=== PATIENT | female | born 1945 | race Caucasian/White ===

== ENCOUNTER 2018-04-10 19:37 | Outpatient (REF) | payer MEDICARE, SELFPAY ==
[2018-04-10 20:53] LABS: HCT 40.9 % (36.0-46.0); HGB 13.2 g/dL (12.0-15.5); Mean Corp. HGB Concentration 32.3 g/dL (32.0-36.0); Mean Corpuscular Hemoglobin 30.8 pg (27.0-33.0); Mean Corpuscular Volume 95.6 fL (80-95); Mean Platelet Volume 11.7 fL (8.0-11.0); Platelet Count 228 x1000/uL (130-400); RBC 4.28 m/cumm (4.00-5.20); RBC Distribution Width 13.9 % (11.7-14.6); White Blood Cell Count 9.79 k/cumm (4.4-10.8)
[2018-04-10 20:55] LABS: ALT 21 U/L (12-78); AST 23 U/L (15-37); Alkaline Phosphatase 75 U/L (46-116); BUN 32 mg/dL (7-18); Bilirubin, Total 0.4 mg/dL (0.2-1.0); CREATININE 1.22 mg/dL (0.55-1.02); Calcium 8.8 mg/dL (8.5-10.1); Chloride 106 mmol/L (98-107); Estimated GFR 43.33 (mL/min/1.73m2); Glucose 82 mg/dL (70-100); Potassium 5.3 mmol/L (3.5-5.1); Sodium 138 mmol/L (136-145); Total Protein 7.2 g/dL (6.4-8.2)
== END 2018-04-10 19:57 ==
LOC: NCHCN 19:37
PROVIDERS: PCP Internal Medicine; Visit Provider Internal Medicine
DX: R73.09 Other abnormal glucose (principal); I48.0 Paroxysmal atrial fibrillation; E66.9 Obesity, unspecified
CPT/HCPCS: 80053; 85027

== ENCOUNTER 2019-04-08 12:13 | Outpatient (REF) | payer MEDICARE, SELFPAY ==
[2019-04-08 18:44] LABS: HGB 13.3 g/dL (12.0-15.5); Mean Corp. HGB Concentration 32.4 g/dL (32.0-36.0); Mean Corpuscular Hemoglobin 29.6 pg (27.0-33.0); Mean Corpuscular Volume 91.1 fL (80-95); Platelet Count 278 x1000/uL (130-400); RBC Distribution Width 14.2 % (11.7-14.6); White Blood Cell Count 7.63 k/cumm (4.4-10.8)
[2019-04-08 18:54] LABS: Anion Gap 7.2 mmol/L (3-11); BUN 22 mg/dL (7-18); CO2 26.8 mmol/L (21.0-32.0); CREATININE 1.04 mg/dL (0.55-1.02); Calcium 9.4 mg/dL (8.5-10.1); Chloride 108 mmol/L (98-107); Estimated GFR 51.94 (mL/min/1.73m2); Glucose 99 mg/dL (70-100); Potassium 4.5 mmol/L (3.5-5.1); Sodium 142 mmol/L (136-145); TSH 1.86 uIU/mL (0.36-3.74)
[2019-04-08 19:31] LABS: Hemoglobin A1C 5.4 % (4.5-6.2)
== END 2019-04-08 12:33 ==
LOC: NCHCN 12:13
PROVIDERS: PCP Internal Medicine; Visit Provider Internal Medicine
DX: R73.09 Other abnormal glucose (principal); M25.511 Pain in right shoulder; E66.9 Obesity, unspecified; R29.6 Repeated falls; I10 Essential (primary) hypertension
CPT/HCPCS: 80048; 85027; 83036; 84443

== ENCOUNTER 2020-04-26 15:14 | Outpatient (REF) | payer MEDICARE, SELFPAY ==
[2020-04-26 22:40] LABS: Albumin 3.6 g/dL (3.4-5.0); Anion Gap 8.2 mmol/L (3-11); BUN 21 mg/dL (7-18); C-Reactive Protein 0.27 mg/dL (0.0-0.3); CO2 26.8 mmol/L (21.0-32.0); Calcium 9.3 mg/dL (8.5-10.1); Chloride 106 mmol/L (98-107); Glucose 89 mg/dL (74-106); Magnesium 2.1 mg/dL (1.8-2.4); PHOSPHORUS 3.9 mg/dL (2.6-4.7); Potassium 4.6 mmol/L (3.5-5.1); Sodium 141 mmol/L (136-145)
[2020-04-26 23:04] LABS: ESR 12 mm/hr (0-30)
[2020-04-27 16:33] LABS: Rheumatoid Factor <8.6 IU/mL (<12.0)
[2020-04-28 10:01] LABS: Cyclic Citrullinated Peptide <2.5 U/mL (<5.0)
== END 2020-04-26 15:34 ==
LOC: NCHCN 15:14
PROVIDERS: PCP Internal Medicine; Visit Provider Internal Medicine
DX: M06.9 Rheumatoid arthritis, unspecified (principal); R73.09 Other abnormal glucose; I10 Essential (primary) hypertension; E66.9 Obesity, unspecified
CPT/HCPCS: 80069; 85652; 86200; 83735; 86140; 86431

== ENCOUNTER 2021-04-27 16:47 | Outpatient (REF) | payer MEDICARE, SELFPAY ==
[2021-04-27 19:41] LABS: HCT 44.6 % (36.0-46.0); HGB 14.1 g/dL (11.2-15.7); MCH 30.1 pg (27.0-33.0); MCHC 31.6 % (32.0-36.0); MCV 95.1 fL (80-95); MPV 11.1 fL (8.0-11.0); Platelet Count 259 10^3/uL (130-400); RBC 4.69 10^6/uL (3.93-5.22); RDW 13.8 % (11.7-14.6); RDW-SD 48.5 fL; WBC 8.56 10^3/uL (4.4-10.8)
[2021-04-27 20:29] LABS: Anion Gap 6.4 mmol/L (3-11); BUN 26 mg/dL (7-18); CO2 30.6 mmol/L (21.0-32.0); CREATININE 1.1 mg/dL (0.55-1.02); Calcium 9.4 mg/dL (8.5-10.1); Chloride 107 mmol/L (98-107); Estimated GFR 48.42 (mL/min/1.73m2); Glucose 90 mg/dL (74-106); Potassium 4.7 mmol/L (3.5-5.1); Sodium 144 mmol/L (136-145); TSH 2.55 uIU/mL (0.36-3.74); Vitamin B12 358 pg/mL (193-986)
[2021-04-30 13:46] LABS: Total Protein 7.1 g/dL (6.3-8.2)
== END 2021-04-27 16:48 | disposition home or self-care (01) ==
LOC: NCHCN 16:47
PROVIDERS: PCP Internal Medicine; Visit Provider Internal Medicine
DX: I10 Essential (primary) hypertension (principal); M81.0 Age-related osteoporosis without current pathological fracture; G40.209 Localization-related (focal) (partial) symptomatic epilepsy and epileptic syndromes with complex partial seizures, not intractable, without status epilepticus; M25.511 Pain in right shoulder
CPT/HCPCS: 80048; 85027; 82607; 84165; 84443

== ENCOUNTER → 2021-10-10 13:28 | Outpatient (BNVA) | payer MEDICARE, MEDICAID, SELFPAY | PROVIDERS: PCP Internal Medicine; Referring Provider Internal Medicine; Visit Provider Psychiatry & Neurology Neurology | DX: I69.120 Aphasia following nontraumatic intracerebral hemorrhage (principal); I69.151 Hemiplegia and hemiparesis following nontraumatic intracerebral hemorrhage affecting right dominant side; I69.198 Other sequelae of nontraumatic intracerebral hemorrhage; G40.209 Localization-related (focal) (partial) symptomatic epilepsy and epileptic syndromes with complex partial seizures, not intractable, without status epilepticus; R26.89 Other abnormalities of gait and mobility | CPT/HCPCS: 99204 ==

== ENCOUNTER 2021-12-31 14:58 | Outpatient (REF) | payer MEDICARE, MEDICAID, SELFPAY ==
[2022-01-02 12:53] LABS: Albumin 58.5 % (55.8-66.1); Albumin g/dL 3.9 g/dL (3.6-5.2); Immunotyping, Serum (See Note); Total Protein 6.7 g/dL (6.3-8.2)
== END 2021-12-31 14:59 | disposition home or self-care (01) ==
LOC: NCHCN 14:58
PROVIDERS: PCP Internal Medicine; Visit Provider Internal Medicine
DX: E85.89 Other amyloidosis (principal); I43 Cardiomyopathy in diseases classified elsewhere
CPT/HCPCS: 84155; 84165; 86320

== ENCOUNTER 2022-01-07 19:10 | Outpatient (REF) | payer MEDICARE, MEDICAID, SELFPAY ==
[2022-01-09 14:45] LABS: Albumin, Urine % 19.5 %; Albumin, Urine mg/dL 2 mg/dL; Globulins, Urine % 80.5 %; Globulins, Urine mg/dL 7 mg/dL; Immunotyping, Urine (See Note); Total Protein Urine 9 mg/dL (See Note)
== END 2022-01-07 19:11 | disposition home or self-care (01) ==
LOC: NCHCN 19:10
PROVIDERS: PCP Internal Medicine; Visit Provider Internal Medicine
DX: E85.9 Amyloidosis, unspecified (principal)
CPT/HCPCS: 84156; 84166; 86335

== ENCOUNTER 2022-05-02 15:00 | Outpatient (REF) | payer MEDICARE, MEDICAID, SELFPAY ==
[2022-05-02 19:06] LABS: Abs Immature Grans 0.02 10^3/uL (0.0-0.06); Absolute Basophil Count 0.05 10^3/uL (0.0-0.2); Absolute Eosinophil Count 0.45 10^3/uL (0.0-0.7); Absolute Lymphocyte Count 2.06 10^3/uL (1.2-3.4); Absolute Monocyte Count 0.87 10^3/uL (0.1-0.8); Absolute Neutrophil Count 5.42 10^3/uL (1.2-6.7); Basophils % 0.6; Eosinophils % 5.1; HCT 40.7 % (36.0-46.0); Immature Grans % 0.2; Lymphocytes % 23.2; MCH 30.6 pg (27.0-33.0); MCHC 31.9 % (32.0-36.0); MCV 96 fL (80-95); MPV 10.7 fL (8.0-11.0); Monocytes % 9.8; Neutrophils % 61.1; Platelet Count 251 10^3/uL (130-400); RBC 4.25 10^6/uL (3.93-5.22); RDW 14.1 % (11.7-14.6); RDW-SD 49.4 fL; WBC 8.87 10^3/uL (4.4-10.8)
[2022-05-02 19:17] LABS: Anion Gap 7.6 mmol/L (3-11); BUN 24 mg/dL (7-18); CO2 27.4 mmol/L (21.0-32.0); CREATININE 1.1 mg/dL (0.55-1.02); Calcium 9.1 mg/dL (8.5-10.1); Calculated LDL 119 mg/dL (<100); Chloride 109 mmol/L (98-107); Cholesterol 203 mg/dL (<200); Estimated GFR 52.08 (mL/min/1.73m2); Glucose 85 mg/dL (74-106); HDL Cholesterol 49 mg/dL (40-60); Potassium 4.4 mmol/L (3.5-5.1); Sodium 144 mmol/L (136-145); Triglyceride 175 mg/dL (<150)
== END 2022-05-02 15:01 | disposition home or self-care (01) ==
LOC: NCHCN 15:00
PROVIDERS: PCP Internal Medicine; Visit Provider Internal Medicine
DX: I61.2 Nontraumatic intracerebral hemorrhage in hemisphere, unspecified (principal); I48.91 Unspecified atrial fibrillation
CPT/HCPCS: 80048; 80061; 85025

== ENCOUNTER 2022-10-11 18:48 | Outpatient (REF) | payer MEDICARE, MEDICAID, SELFPAY ==
[2022-10-11 19:07] LABS: Bilirubin Negative (Negative); Blood Negative (Negative); Clarity Clear (Clear); Glucose Negative (Negative); Ketones Negative (Negative); Leukocyte Esterase Negative (Negative); Nitrite Negative (Negative); Specific Gravity >= 1.030 (1.005-1.025); Urobilinogen 0.2 mg/dL (Up to 0.2); pH 5.5 (5-8)
== END 2022-10-11 18:49 | disposition home or self-care (01) ==
LOC: NCHCN 18:48
PROVIDERS: PCP Internal Medicine; Visit Provider Internal Medicine
DX: R10.30 Lower abdominal pain, unspecified (principal); R82.998 Other abnormal findings in urine
CPT/HCPCS: 81003

== ENCOUNTER 2024-01-07 14:22 | Outpatient (REF) | payer MEDICARE, SELFPAY ==
[2024-01-07 20:25] LABS: HCT 41.7 % (36.0-46.0); HGB 13.2 g/dL (11.2-15.7); MCH 29.6 pg (27.0-33.0); MCHC 31.7 % (32.0-36.0); MCV 94 fL (80-95); MPV 10.7 fL (8.0-11.0); Platelet Count 286 10^3/uL (130-400); RBC 4.46 10^6/uL (3.93-5.22); RDW 14.6 % (11.7-14.6); RDW-SD 50.2 fL; WBC 8.45 10^3/uL (4.4-10.8)
[2024-01-07 21:01] LABS: Anion Gap 6.6 mmol/L (3-11); BUN 19 mg/dL (7-18); CO2 30.4 mmol/L (21.0-32.0); Calcium 9.7 mg/dL (8.5-10.1); Calculated LDL 118 mg/dL (<100); Chloride 106 mmol/L (98-107); Cholesterol 197 mg/dL (<200); Estimated GFR 57.66 (mL/min/1.73m2); Glucose 94 mg/dL (74-106); HDL Cholesterol 56 mg/dL (40-60); Potassium 4.8 mmol/L (3.5-5.1); Sodium 143 mmol/L (136-145); Triglyceride 119 mg/dL (<150)
== END 2024-01-07 14:23 | disposition home or self-care (01) ==
LOC: NCHCN 14:22
PROVIDERS: PCP Internal Medicine; Visit Provider Internal Medicine
DX: I10 Essential (primary) hypertension (principal); E78.5 Hyperlipidemia, unspecified; Z79.82 Long term (current) use of aspirin
CPT/HCPCS: 80048; 80061; 85027

== ENCOUNTER 2024-03-30 22:03 | Outpatient (REF) | payer MEDICARE, SELFPAY ==
[2024-03-30 20:31] LABS: ALT 23 U/L (14-59); AST 23 U/L (15-37); Albumin 3.3 g/dL (3.4-5.0); Alkaline Phosphatase 107 U/L (46-116); Bilirubin, Direct 0.1 mg/dL (0.0-0.2); Bilirubin, Total 0.37 mg/dL (0.2-1.0); Ferritin 116 ng/mL (8-252); Total Protein 7.1 g/dL (6.4-8.2)
[2024-03-31 18:09] LABS: HBs Antibody, Quant 28.5 mIU/mL (See Note); Hepatitis B Surface Ab Positive (See Note)
[2024-03-31 18:48] LABS: Hepatitis C Ab w Rflx HCV PCR Negative (Negative)
== END 2024-03-30 22:04 | disposition home or self-care (01) ==
LOC: NCHCN 22:03
PROVIDERS: PCP Internal Medicine; Visit Provider Internal Medicine
DX: S36.112D Contusion of liver, subsequent encounter (principal)
CPT/HCPCS: 80076; 86706; 86803; 82728